=== PATIENT | male | born 1985 | race African-American/Black ===

== ENCOUNTER 2016-11-09 18:51 | Emergency (ER) | payer BC ==
[2016-11-09 18:56] VITALS: BP 138/57; RESP 16
[2016-11-09] MEDS ORDERED: NS 1,000 ML IV ONE (19:51)
--- NOTE | 2016-11-09 20:40 | EDPHY ---
H & P Time Seen by Provider: 11/09/16 19:13 HPI/ROS: CHIEF COMPLAINT: Diarrhea HISTORY OF PRESENT ILLNESS: 31-year-old male presents to the emergency department complaining of watery diarrhea that began this morning. The patient returned from [facility] yesterday and developed diarrhea today. No bright red blood in his stool. No fevers or chills. No abdominal pain. No back pain. No urinary symptoms. No known ill contacts. No chest pain or difficulty breathing. No rash. REVIEW OF SYSTEMS: Constitutional: No fever, no chills. Eyes: No double or blurry vision. ENT: No sore throat. Respiratory: No cough, no shortness of breath. Cardiac: No chest pain. Gastrointestinal: Diarrhea as above. No abdominal pain or vomiting Genitourinary: No dysuria. Musculoskeletal: No neck or back pain. Skin: No rashes. Neurological: No headache. Past Medical/Surgical History: Negative Social History: From [place] Smoking Status: Never smoked Physical Exam: General Appearance: Alert, no distress. Afebrile and nontoxic-appearing. Eyes: Pupils equal and round. Extraocular motions are all intact. ENT: Mouth: Mucous membranes moist. Respiratory: No wheezing, rhonchi, or rales, lungs are clear to auscultation. Cardiovascular: Regular rate and rhythm. Gastrointestinal: Abdomen is soft and nontender, no masses, no rebound or guarding, bowel sounds normal. No CVA tenderness bilaterally Neurological: Alert and oriented x 3, cranial nerves II through XII grossly intact Skin: Warm and dry, no rashes. Musculoskeletal: Nontender to palpate along the cervical, thoracic or lumbar spine. Neck is supple. Extremities: Full range of motion and no peripheral edema. Psychiatric: Patient is oriented X 3, there is no agitation. Constitutional: Initial Vital Signs Temperature (C) 36.6 C 11/09/16 18:52 Heart Rate 99 11/09/16 18:52 Respiratory Rate 16 11/09/16 18:52 Blood Pressure 138/57 H 11/09/16 18:52 O2 Sat (%) 99 11/09/16 18:52 O2 Delivery Mode Room Air Allergies/Adverse Reactions: No Known Allergies Allergy (Unverified 11/09/16 18:56) Home Medications: Medication Instructions Recorded Ciprofloxacin [Cipro 500 mg] 500 mg PO BID #6 tab 11/09/16 Medical Decision Making ED Course/Re-evaluation: 31-year-old male presents to the emergency department with watery diarrhea. Because this patient had recent foreign travel to [facility] and is now symptomatic with watery diarrhea that is without bright red blood per rectum, patient will be started on Cipro. I did discuss case with Dr. Sonia Rose, supervising physician, who did not directly evaluate the patient but agrees with treatment and plan. Stool cultures pending. He was guaiac positive. Again no bright red blood per rectum. Patient was started on single dose of Cipro in the emergency department given a prescription for 3 additional days. Differential Diagnosis: Including but not limited to infectious diarrhea, viral diarrhea, gastritis, bowel obstruction, acute appendicitis - Data Points Laboratory Results: 11/09/16 19:00 Stool Occult Bld Scrn POSITIVE H (NEGATIVE) Medications Given: Discontinued Medications Ciprofloxacin (Cipro) 500 mg PO EDNOW ONE PRN Reason: Protocol Stop: 11/09/16 21:01 Last Admin: 11/09/16 21:01 Dose: 500 mg Sodium Chloride (Ns) 1,000 mls @ 0 mls/hr IV ONCE ONE; Wide Open PRN Reason: Protocol Stop: 11/09/16 19:52 Last Admin: 11/09/16 19:52 Dose: 1,000 mls Ondansetron HCl (Zofran Odt) 4 mg PO EDNOW ONE Stop: 11/09/16 21:25 Last Admin: 11/09/16 21:30 Dose: 4 mg Departure - Departure Disposition: Home, Routine, Self-Care Clinical Impression: Diarrhea Qualifiers: Diarrhea type: unspecified type Qualified Code(s): R19.7 - Diarrhea, unspecified Condition: Good Instructions: Acute Diarrhea (ED) Additional Instructions: Call [phone] for the results of your stool culture in 48 hours. Return if you develop fever, bright red blood in your stool, or if you feel worse in any way. Given your recent foreign travel, you will be treated with Cipro 500 mg twice daily for 3 days. Referrals: Katia Dempsey MD [Medical Doctor] - 1 day, if not improved (Primary care provider operations intern) Prescriptions: Ciprofloxacin [Cipro 500 mg] 500 mg PO BID #6 tab
[2016-11-09] MEDS ORDERED: CIPROFLOXACIN 500 MG TAB ONE (20:46)
[2016-11-09] MEDS ORDERED: CIPROFLOXACIN 500 MG TAB PO ONE (21:00)
[2016-11-09] MEDS ORDERED: ONDANSETRON DISINTEGRATING 4 MG TAB ONE (21:14)
[2016-11-09] MEDS ORDERED: ONDANSETRON DISINTEGRATING 4 MG TAB PO ONE (21:24)
[2016-11-09 21:31] VITALS: PULSE 90; TEMP 99.1; O2SAT 96
== END 2016-11-09 22:25 | disposition home or self-care (01) ==
DX: R19.7 Diarrhea, unspecified (principal); E86.9 Volume depletion, unspecified